=== PATIENT | female | born 1990 | race Caucasian/White ===

== ENCOUNTER 2023-05-02 19:56 | Emergency (ER) | payer BC ==
[~2023-05-02] VITALS: Ht 152.4 cm; Wt 81.6 kg
[2023-05-02] MEDS ORDERED: SODIUM CHLORIDE 0.9% 1000ML 1,000 ML IV STA (20:20)
[2023-05-02] MEDS ORDERED: SODIUM CHLORIDE 0.9% 1000ML 1,000 ML ONE (20:37)
[2023-05-02 21:30] VITALS: O2SAT 99
== END 2023-05-02 21:45 | disposition home or self-care (01) ==
LOC: FSED 20:07
DX: R55 Syncope and collapse (principal); R00.0 Tachycardia, unspecified; D72.829 Elevated white blood cell count, unspecified; F41.9 Anxiety disorder, unspecified; F32.A Depression, unspecified
CPT/HCPCS: 70450; 80053; 81003; 81025; 82553; 84484; 85025; 93005; 99284; J7030